=== PATIENT | female | born 1985 | race African-American/Black ===

== ENCOUNTER 2018-08-16 11:48 | Emergency (ER) | payer MEDICAID ==
[~2018-08-16] VITALS: Ht 167.6 cm; Wt 57.0 kg
[2018-08-16 13:04] VITALS: BP 100/68
== END 2018-08-16 18:43 | disposition left against medical advice (07) ==
LOC: ER 11:48
DX: Z53.21 Procedure and treatment not carried out due to patient leaving prior to being seen by health care provider (principal)